=== PATIENT | male | born 1940 | race Caucasian/White ===

== ENCOUNTER 2018-10-12 06:49 | Day surgery (SDC) | payer MEDICARE ==
[~2018-10-12] VITALS: Ht 170.2 cm; Wt 74.8 kg
[2018-10-12 07:21] VITALS: BP 153/84
[2018-10-12] MEDS ORDERED: LISI1TAB5 PO (07:31)
[2018-10-12] MEDS ORDERED: PHEN100C PO (07:31)
[2018-10-12] MEDS ORDERED: NAPR-850 PO (07:31)
[2018-10-12] MEDS ORDERED: METF500T17 PO (07:31)
[2018-10-12] MEDS ORDERED: GLIM4TAB2 PO (07:31)
[2018-10-12 07:33] LABS: BASOPHILS # (AUTO) 0.05 x10^3/uL (0-0.1); BASOPHILS % (AUTO) 1 % (0-1); EOSINOPHILS # (AUTO) 0.23 x10^3/uL (0-0.4); EOSINOPHILS % (AUTO) 3 % (1-7); LYMPHOCYTES # (AUTO) 2.35 x10^3/uL (1-3.4); LYMPHOCYTES % (AUTO) 29 % (22-44); MD NO; MEAN CORPUSCULAR HEMOGLOBIN 32.3 pg (27.5-34.5); MEAN CORPUSCULAR HGB CONC 33.7 g/dL (33.2-36.2); MEAN CORPUSCULAR VOLUME 95.8 fL (81-97); MEAN PLATELET VOLUME 7.9 fL (7.4-10.4); MONOCYTES # (AUTO) 0.48 x10^3/uL (0.2-0.8); MONOCYTES % (AUTO) 6 % (2-9); NEUTROPHILS # (AUTO) 4.95 x10^3/uL (1.8-6.8); NEUTROPHILS % (AUTO) 62 % (42-75); PLATELET COUNT 311 x10^3/uL (130-400); RED BLOOD COUNT 4.82 x10^6/uL (4.38-5.82); RED CELL DISTRIBUTION WIDTH 13.6 % (9.4-14.8)
[2018-10-12 07:44] LABS: ANION GAP 6 mmol/L (5-15); CALCIUM 9.8 mg/dL (8.5-10.1); CHLORIDE 107 mmol/L (98-107); CREATININE 1.33 mg/dL (0.7-1.3)
[2018-10-12] MEDS ORDERED: PROTAMINE SULFATE 10 MG/ML, 25ML ONE (07:49)
[2018-10-12] MEDS ORDERED: NALOXONE 1 MG/ML, 2ML ONE (07:49)
[2018-10-12] MEDS ORDERED: HEPARIN 1,000 UNITS/ML, 10ML ONE (07:49)
[2018-10-12] MEDS ORDERED: FLUMAZENIL 0.1 MG/1 ML, 5ML ONE (07:49)
[2018-10-12] MEDS ORDERED: NITROGLYCERIN 5 MG/ML, 10ML ONE (07:49)
[2018-10-12] MEDS ORDERED: FENTANYL PF 100 MCG/2ML ONE (07:49)
[2018-10-12] MEDS ORDERED: MIDAZOLAM 1 MG/ML, 5ML ONE ×2 (07:49)
[2018-10-12] MEDS ORDERED: OMNIPAQUE 350 MG/ML, 150 ML BOTTLE ONE (10:10)
== END 2018-10-12 10:38 | disposition home or self-care (01) ==
LOC: OUT 06:49
PROVIDERS: ATTEND Surgery Vascular Surgery
DX: I73.9 Peripheral vascular disease, unspecified (principal); Z53.9 Procedure and treatment not carried out, unspecified reason; E78.00 Pure hypercholesterolemia, unspecified; I10 Essential (primary) hypertension
CPT/HCPCS: 36140; 36415; 75630; 75635; 80048; 85025; J1644; J2250; J2310; J2720; J3010; Q9967

== ENCOUNTER 2018-12-09 11:12 | Outpatient (CLI) | payer MEDICARE ==
[~2018-12-09 11:12] MED LIST: GLIM4TAB2 PO; LISI1TAB5 PO; METF500T17 PO; NAPR-850 PO; PHEN100C PO
[2018-12-09 12:22] LABS: BASOPHILS # (AUTO) 0.04 x10^3/uL (0-0.1); BASOPHILS % (AUTO) 1 % (0-1); EOSINOPHILS # (AUTO) 0.25 x10^3/uL (0-0.4); EOSINOPHILS % (AUTO) 3 % (1-7); LYMPHOCYTES % (AUTO) 27 % (22-44); MD NO; MEAN CORPUSCULAR HEMOGLOBIN 32.6 pg (27.5-34.5); MEAN CORPUSCULAR HGB CONC 34.2 g/dL (33.2-36.2); MEAN CORPUSCULAR VOLUME 95.3 fL (81-97); MEAN PLATELET VOLUME 7.8 fL (7.4-10.4); MONOCYTES # (AUTO) 0.51 x10^3/uL (0.2-0.8); MONOCYTES % (AUTO) 7 % (2-9); NEUTROPHILS # (AUTO) 4.81 x10^3/uL (1.8-6.8); NEUTROPHILS % (AUTO) 62 % (42-75); PLATELET COUNT 329 x10^3/uL (130-400); RED BLOOD COUNT 4.75 x10^6/uL (4.38-5.82); RED CELL DISTRIBUTION WIDTH 13.4 % (9.4-14.8)
[2018-12-09 12:33] LABS: ALANINE AMINOTRANSFERASE 49 U/L (12-78); ALBUMIN 3.9 g/dL (3.4-5.0); ANION GAP 6 mmol/L (5-15); CALCIUM 9.6 mg/dL (8.5-10.1); CHLORIDE 107 mmol/L (98-107)
[2018-12-09 12:35] LABS: ALKALINE PHOSPHATASE 165 U/L (45-117); BILIRUBIN,TOTAL 0.4 mg/dL (0.2-1.0); TOTAL PROTEIN 8.9 g/dL (6.4-8.2)
[2018-12-09] MEDS ORDERED: VITA200C33 PO (15:39)
[2018-12-09] MEDS ORDERED: CHOL100012 PO (15:39)
[2018-12-09] MEDS ORDERED: FISH1CAP PO (15:39)
[2018-12-22] MEDS ORDERED: LISI5TAB7 PO (10:57)
[2018-12-22] MEDS ORDERED: ASPI-650 PO (10:57)
[2018-12-22] MEDS ORDERED: METO25TA35 PO (10:57)
[2018-12-22] MEDS ORDERED: ATOR-2 PO (10:57)
[2018-12-22] MEDS ORDERED: CLOP75TA PO (10:57)
[2018-12-22] MEDS ORDERED: NITR0.4T SL (10:57)
== END 2018-12-09 23:59 | disposition home or self-care (01) ==
LOC: STAR 11:12
PROVIDERS: ATTEND Surgery Vascular Surgery
DX: Z01.818 Encounter for other preprocedural examination (principal)
CPT/HCPCS: 36415; 80053; 85025; 93005

== ENCOUNTER 2018-12-13 06:15 | Inpatient (IN) | payer MEDICARE ==
[~2018-12-13] VITALS: Ht 170.2 cm; Wt 82.6 kg
[~2018-12-13 06:15] MED LIST changes: +CHOL100012 PO; +FISH1CAP PO; +VITA200C33 PO
[2018-12-13] MEDS ORDERED: PROTAMINE SULFATE 10 MG/ML, 5ML ONE (06:39)
[2018-12-13] MEDS ORDERED: HEPARIN 5,000 UNITS/ML, 1ML ONE ×2 (06:39→08:25)
[2018-12-13] MEDS ORDERED: BACITRACIN 50,000 UNIT ONE (06:40)
[2018-12-13] MEDS ORDERED: THROMBIN 20,000 UNIT VIAL TP ONE ×2 (06:40→10:21)
[2018-12-13] MEDS ORDERED: PAPAVERINE 30 MG/ML, 2ML ONE (07:04)
[2018-12-13] MEDS ORDERED: MIDAZOLAM 1 MG/ML, 2ML ONE (07:14)
[2018-12-13] MEDS ORDERED: FENTANYL PF 250 MCG/5ML ONE (07:15)
[2018-12-13] MEDS ORDERED: LACTATED RINGERS 1,000 ML IV SCH (07:16)
[2018-12-13] MEDS ORDERED: HYDROmorphone 2 MG/ML, 1ML IVPush PRN (07:30)
[2018-12-13] MEDS ORDERED: FENTANYL PF 100 MCG/2ML IV PRN (07:30)
[2018-12-13] MEDS ORDERED: LIDOCAINE-MPF 1%, 2ML INFIL ONE (07:30)
[2018-12-13] MEDS ORDERED: LABETALOL 5MG/ML, 20ML IV PRN (07:30)
[2018-12-13] MEDS ORDERED: EPHEDRINE 50 MG/ML, 1ML IVPush PRN (07:30)
[2018-12-13] MEDS ORDERED: LORazepam 2 MG/ML, 1ML IVPush PRN (07:30)
[2018-12-13] MEDS ORDERED: ACETAMINOPHEN 325 MG TABLET PO PRN (07:30)
[2018-12-13] MEDS ORDERED: OXYcodone 5 MG/5 ML ORAL.SOL UDC PO PRN ×2 (07:30→14:00)
[2018-12-13] MEDS ORDERED: METOCLOPRAMIDE 5 MG/ML, 2ML IV PRN (07:30)
[2018-12-13] MEDS ORDERED: hydrALAzine 20 MG/ML, 1ML IV PRN (07:30)
[2018-12-13] MEDS ORDERED: METOPROLOL 1 MG/ML, 5ML IV PRN (07:30)
[2018-12-13] MEDS ORDERED: ALBUTEROL SULFATE 2.5 MG/3 ML NPPB PRN (07:30)
[2018-12-13] MEDS ORDERED: HEPARIN 1,000 UNITS/ML, 30ML ONE (08:25)
[2018-12-13] MEDS ORDERED: VISIPAQUE 320MG/ML, 50ML BOTTLE IV ONE (08:55)
[2018-12-13] MEDS ORDERED: FENTANYL PF 100 MCG/2ML ONE (10:40)
[2018-12-13] MEDS ORDERED: LORazepam 2 MG/ML, 1ML ONE (10:40)
[2018-12-13] MEDS ORDERED: OPIUM/BELLADONNA SUPP.RECT 16.2-60 MG ONE (10:45)
[2018-12-13] MEDS ORDERED: OPIUM/BELLADONNA SUPP.RECT 16.2-60 MG PR PRN (12:00)
[2018-12-13] MEDS ORDERED: VISIPAQUE 320MG/ML, 50ML BOTTLE ONE (12:18)
[2018-12-13] MEDS ORDERED: OXYcodone 5 MG/5 ML ORAL.SOL UDC ONE (13:07)
[2018-12-13] MEDS ORDERED: SODIUM CHLORIDE 0.9% 1,000 ML IV SCH (13:30)
[2018-12-13] MEDS ORDERED: ONDANSETRON 2MG/ML, 2ML IV PRN (13:30)
[2018-12-13 14:10] VITALS: BP 108/62
[2018-12-13] MEDS: CEFAZOLIN PMX 1GM/50ML 50 ML IVPB SCH (15:55)
[2018-12-13] MEDS: SODIUM CHLORIDE 0.9% 1,000 ML IV SCH (15:55)
[2018-12-13] MEDS: INSULIN REGULAR, HUMAN 100 UNIT/ML 3ML VIAL LOW DOSE SS SQ-INSULIN SCH ×2 (15:59→20:59)
[2018-12-13 20:22] VITALS: BP 141/83
[2018-12-13] MEDS: PHENYTOIN 100 MG CAPSULE PO SCH (20:59)
[2018-12-13] MEDS: LISINOPRIL 20 MG TABLET PO SCH (20:59)
[2018-12-13] MEDS: NAPROXEN 500 MG TABLET PO SCH (20:59)
[2018-12-13] MEDS: HYDROCHLOROTHIAZIDE 12.5 MG CAPSULE PO SCH (20:59)
[2018-12-14 00:09] VITALS: BP 92/56
[2018-12-14] MEDS: CEFAZOLIN PMX 1GM/50ML 50 ML IVPB SCH (00:13)
[2018-12-14 04:01] VITALS: BP 121/92
[2018-12-14 05:14] LABS: BASOPHILS # (AUTO) 0.03 x10^3/uL (0-0.1); BASOPHILS % (AUTO) 0 % (0-1); EOSINOPHILS # (AUTO) 0.21 x10^3/uL (0-0.4); EOSINOPHILS % (AUTO) 2 % (1-7); LYMPHOCYTES # (AUTO) 2.12 x10^3/uL (1-3.4); LYMPHOCYTES % (AUTO) 23 % (22-44); MD NO; MEAN CORPUSCULAR HGB CONC 34.5 g/dL (33.2-36.2); MEAN CORPUSCULAR VOLUME 95.6 fL (81-97); MONOCYTES # (AUTO) 1.02 x10^3/uL (0.2-0.8); MONOCYTES % (AUTO) 11 % (2-9); NEUTROPHILS # (AUTO) 6.04 x10^3/uL (1.8-6.8); NEUTROPHILS % (AUTO) 64 % (42-75); PLATELET COUNT 213 x10^3/uL (130-400); RED BLOOD COUNT 3.28 x10^6/uL (4.38-5.82); RED CELL DISTRIBUTION WIDTH 12.9 % (9.4-14.8)
[2018-12-14] MEDS: SODIUM CHLORIDE 0.9% 1,000 ML IV SCH (05:16)
[2018-12-14 05:27] LABS: ALBUMIN 2.7 g/dL (3.4-5.0); ANION GAP 4 mmol/L (5-15); CHLORIDE 110 mmol/L (98-107)
[2018-12-14 05:28] LABS: CREATININE 1.35 mg/dL (0.7-1.3)
[2018-12-14 06:49] VITALS: BP 121/92
[2018-12-14] MEDS: INSULIN REGULAR, HUMAN 100 UNIT/ML 3ML VIAL LOW DOSE SS SQ-INSULIN SCH ×4 (07:22→21:00)
[2018-12-14] MEDS ORDERED: PROTAMINE SULFATE 10 MG/ML, 5ML ONE (08:20)
[2018-12-14] MEDS ORDERED: HEPARIN 1,000 UNITS/ML, 10ML ONE (08:20)
[2018-12-14] MEDS ORDERED: THROMBIN 20,000 UNIT VIAL TP ONE (08:21)
[2018-12-14] MEDS ORDERED: FENTANYL PF 250 MCG/5ML ONE (08:29)
[2018-12-14] MEDS ORDERED: BACITRACIN 50,000 UNIT ONE (08:38)
[2018-12-14] MEDS ORDERED: PHENYLEPHRINE 10 MG/ML ONE (08:52)
[2018-12-14] MEDS ORDERED: OXYcodone 5 MG/5 ML ORAL.SOL UDC PO PRN (10:00)
[2018-12-14] MEDS ORDERED: ACETAMINOPHEN 325 MG TABLET PO PRN (10:00)
[2018-12-14] MEDS ORDERED: hydrALAzine 20 MG/ML, 1ML IV PRN (10:00)
[2018-12-14] MEDS ORDERED: MIDAZOLAM 1 MG/ML, 2ML IV PRN (10:00)
[2018-12-14] MEDS ORDERED: ONDANSETRON 2MG/ML, 2ML IV PRN (10:00)
[2018-12-14] MEDS ORDERED: HEPARIN 5,000 UNITS/ML, 1ML IV ONE (10:00)
[2018-12-14] MEDS ORDERED: FENTANYL PF 100 MCG/2ML IV PRN (10:00)
[2018-12-14] MEDS ORDERED: ALBUTEROL/IPRATROPIUM 2.5MG/0.5MG, 3 ML NPPB PRN (10:00)
[2018-12-14] MEDS ORDERED: MEPERIDINE/PF 25MG/0.5ML IVPush PRN (10:00)
[2018-12-14] MEDS ORDERED: METOPROLOL 1 MG/ML, 5ML IV PRN (10:00)
[2018-12-14] MEDS ORDERED: HYDROmorphone 2 MG/ML, 1ML IVPush PRN (10:00)
[2018-12-14] MEDS ORDERED: VISIPAQUE 320MG/ML, 50ML BOTTLE ONE (10:26)
[2018-12-14] MEDS ORDERED: ROCURONIUM 10MG/ML,5ML ONE (10:27)
[2018-12-14] MEDS ORDERED: ONDANSETRON 2MG/ML, 2ML ONE (10:27)
[2018-12-14] MEDS ORDERED: CEFAZOLIN 1,000 MG ONE (10:27)
[2018-12-14] MEDS ORDERED: DEXAMETHASONE 4 MG/ML, 1ML ONE (10:27)
[2018-12-14] MEDS ORDERED: GLYCOPYRROLATE 0.2MG/1ML, 5ML ONE (10:27)
[2018-12-14] MEDS ORDERED: LIDOCAINE-MPF 2% ,5ML ONE (10:27)
[2018-12-14] MEDS ORDERED: NEOSTIGMINE 1 MG/ML, 10ML ONE (10:27)
[2018-12-14] MEDS ORDERED: PROPOFOL 10 MG/ML, 20ML ONE (10:27)
[2018-12-14] MEDS: OMEGA-3/FISH OIL CAPSULE PO SCH (10:42)
[2018-12-14] MEDS: PHENYTOIN 100 MG CAPSULE PO SCH ×2 (10:42→21:42)
[2018-12-14] MEDS: HYDROCHLOROTHIAZIDE 12.5 MG CAPSULE PO SCH ×2 (10:42→21:00)
[2018-12-14] MEDS: LISINOPRIL 20 MG TABLET PO SCH ×2 (10:43→21:00)
[2018-12-14] MEDS: CHOLECALCIFEROL 1,000 UNIT TABLET PO SCH (10:43)
[2018-12-14] MEDS: NAPROXEN 500 MG TABLET PO SCH ×2 (10:43→21:42)
[2018-12-14] MEDS: VITAMIN E 400 UNITS CAPSULE PO SCH (10:43)
[2018-12-14] MEDS ORDERED: MIDAZOLAM 1 MG/ML, 2ML ONE (10:47)
[2018-12-14] MEDS ORDERED: ALBUTEROL/IPRATROPIUM 2.5MG/0.5MG, 3 ML ONE (11:27)
[2018-12-14] MEDS ORDERED: FENTANYL PF 100 MCG/2ML ONE (12:02)
[2018-12-14] MEDS: HEPARIN 25,000 UNITS/500ML PMX 500 ML IV PRN (12:30)
[2018-12-14 15:36] VITALS: BP 118/61
[2018-12-14] MEDS ORDERED: SODIUM CHLORIDE 0.9%, 500ML IVBOLUS ONE (18:30)
[2018-12-14] MEDS: HEPARIN 5,000 UNITS/ML, 1ML IV PRN (19:07)
[2018-12-14 20:15] VITALS: BP 93/50
[2018-12-14 21:11] LABS: BASOPHILS # (AUTO) 0.03 x10^3/uL (0-0.1); BASOPHILS % (AUTO) 0 % (0-1); EOSINOPHILS # (AUTO) 0.03 x10^3/uL (0-0.4); EOSINOPHILS % (AUTO) 0 % (1-7); LYMPHOCYTES % (AUTO) 17 % (22-44); MD NO; MEAN CORPUSCULAR HEMOGLOBIN 32.5 pg (27.5-34.5); MEAN CORPUSCULAR HGB CONC 33.7 g/dL (33.2-36.2); MEAN CORPUSCULAR VOLUME 96.4 fL (81-97); MEAN PLATELET VOLUME 8.4 fL (7.4-10.4); MONOCYTES # (AUTO) 0.92 x10^3/uL (0.2-0.8); MONOCYTES % (AUTO) 10 % (2-9); NEUTROPHILS # (AUTO) 6.59 x10^3/uL (1.8-6.8); NEUTROPHILS % (AUTO) 73 % (42-75); PLATELET COUNT 204 x10^3/uL (130-400); RED BLOOD COUNT 2.88 x10^6/uL (4.38-5.82); RED CELL DISTRIBUTION WIDTH 12.7 % (9.4-14.8)
[2018-12-14 21:13] LABS: ANION GAP 6 mmol/L (5-15); CALCIUM 7.7 mg/dL (8.5-10.1); CHLORIDE 108 mmol/L (98-107); CREATININE 1.27 mg/dL (0.7-1.3)
[2018-12-14] MEDS: HYDROcodone/APAP 5/325 TABLET PO PRN (22:48)
[2018-12-15] VITALS (7 sets, daily range): BP systolic 84–118; BP diastolic 44–77
[2018-12-15] MEDS ORDERED: SODIUM CHLORIDE 0.9%, 250ML IVBOLUS ONE
[2018-12-15] MEDS: SODIUM CHLORIDE 0.9% 1,000 ML IV SCH (01:06)
[2018-12-15] MEDS ORDERED: SODIUM CHLORIDE 0.9% 500 ML IVBOLUS ONE (02:00)
[2018-12-15] MEDS: HEPARIN 5,000 UNITS/ML, 1ML IV PRN ×3 (02:40→18:34)
[2018-12-15] MEDS ORDERED: FUROSEMIDE 20 MG/2 ML IV ONE (05:30)
[2018-12-15] MEDS: ASPIRIN 325 MG TABLET EC PO SCH (05:51)
[2018-12-15] MEDS: INSULIN REGULAR, HUMAN 100 UNIT/ML 3ML VIAL LOW DOSE SS SQ-INSULIN SCH ×4 (07:00→20:15)
[2018-12-15] MEDS: CHOLECALCIFEROL 1,000 UNIT TABLET PO SCH (08:04)
[2018-12-15] MEDS: PHENYTOIN 100 MG CAPSULE PO SCH ×2 (08:04→20:10)
[2018-12-15] MEDS: OMEGA-3/FISH OIL CAPSULE PO SCH (08:04)
[2018-12-15] MEDS: VITAMIN E 400 UNITS CAPSULE PO SCH (08:04)
[2018-12-15 09:48] LABS: BASOPHILS # (AUTO) 0.03 x10^3/uL (0-0.1); BASOPHILS % (AUTO) 0 % (0-1); EOSINOPHILS # (AUTO) 0.14 x10^3/uL (0-0.4); EOSINOPHILS % (AUTO) 2 % (1-7); LYMPHOCYTES # (AUTO) 1.35 x10^3/uL (1-3.4); LYMPHOCYTES % (AUTO) 14 % (22-44); MD NO; MEAN CORPUSCULAR HEMOGLOBIN 32.9 pg (27.5-34.5); MEAN CORPUSCULAR HGB CONC 34.3 g/dL (33.2-36.2); MEAN CORPUSCULAR VOLUME 95.7 fL (81-97); MEAN PLATELET VOLUME 8.3 fL (7.4-10.4); MONOCYTES # (AUTO) 0.75 x10^3/uL (0.2-0.8); MONOCYTES % (AUTO) 8 % (2-9); NEUTROPHILS # (AUTO) 7.27 x10^3/uL (1.8-6.8); NEUTROPHILS % (AUTO) 76 % (42-75); PLATELET COUNT 180 x10^3/uL (130-400); RED BLOOD COUNT 2.74 x10^6/uL (4.38-5.82); RED CELL DISTRIBUTION WIDTH 12.7 % (9.4-14.8)
[2018-12-15 10:04] LABS: ANION GAP 6 mmol/L (5-15); CALCIUM 7.1 mg/dL (8.5-10.1); CHLORIDE 109 mmol/L (98-107)
[2018-12-15] MEDS ORDERED: SODIUM CHLORIDE 0.9% 1,000 ML IV SCH (14:38)
[2018-12-15] MEDS ORDERED: DIPHENHYDRAMINE 50 MG/ML, 1ML IVPush ONE (15:00)
[2018-12-15] MEDS: morphine SULFATE 10 MG/ML, 1ML IV PRN (15:35)
[2018-12-15] MEDS: HEPARIN 25,000 UNITS/500ML PMX 500 ML IV PRN (16:21)
[2018-12-16] MEDS: HEPARIN 5,000 UNITS/ML, 1ML IV PRN ×3 (01:26→19:45)
[2018-12-16 02:42] VITALS: BP 106/65
[2018-12-16] MEDS: SODIUM CHLORIDE 0.9% 1,000 ML IV SCH ×2 (05:38→16:48)
[2018-12-16] MEDS: ASPIRIN 325 MG TABLET EC PO SCH (05:42)
[2018-12-16] MEDS ORDERED: SODIUM CHLORIDE 0.9% 1,000 ML IV SCH (06:00)
[2018-12-16] MEDS: INSULIN REGULAR, HUMAN 100 UNIT/ML 3ML VIAL LOW DOSE SS SQ-INSULIN SCH ×4 (07:00→20:39)
[2018-12-16 08:51] VITALS: BP 113/68
[2018-12-16] MEDS: VITAMIN E 400 UNITS CAPSULE PO SCH (09:00)
[2018-12-16] MEDS: PHENYTOIN 100 MG CAPSULE PO SCH ×2 (09:06→20:31)
[2018-12-16 10:27] LABS: BASOPHILS # (AUTO) 0.03 x10^3/uL (0-0.1); BASOPHILS % (AUTO) 0 % (0-1); EOSINOPHILS # (AUTO) 0.07 x10^3/uL (0-0.4); EOSINOPHILS % (AUTO) 1 % (1-7); LYMPHOCYTES # (AUTO) 1.36 x10^3/uL (1-3.4); LYMPHOCYTES % (AUTO) 18 % (22-44); MD NO; MEAN CORPUSCULAR HGB CONC 34.9 g/dL (33.2-36.2); MEAN CORPUSCULAR VOLUME 94.8 fL (81-97); MONOCYTES # (AUTO) 0.53 x10^3/uL (0.2-0.8); MONOCYTES % (AUTO) 7 % (2-9); NEUTROPHILS % (AUTO) 74 % (42-75); PLATELET COUNT 199 x10^3/uL (130-400); RED BLOOD COUNT 2.47 x10^6/uL (4.38-5.82); RED CELL DISTRIBUTION WIDTH 12.8 % (9.4-14.8)
[2018-12-16 10:29] LABS: ANION GAP 6 mmol/L (5-15); CALCIUM 7.8 mg/dL (8.5-10.1); CHLORIDE 110 mmol/L (98-107); CREATININE 0.95 mg/dL (0.7-1.3)
[2018-12-16 10:52] LABS: HEMOGLOBIN A1C 7.4 % (4.2-6.3)
[2018-12-16] MEDS: OMEGA-3/FISH OIL CAPSULE PO SCH (12:00)
[2018-12-16] MEDS: CHOLECALCIFEROL 1,000 UNIT TABLET PO SCH (12:00)
[2018-12-16 12:51] VITALS: BP 111/59
[2018-12-16] MEDS: HYDROcodone/APAP 5/325 TABLET PO PRN ×2 (14:20→20:31)
[2018-12-16] MEDS: HEPARIN 25,000 UNITS/500ML PMX 500 ML IV PRN (19:03)
[2018-12-16 19:42] VITALS: BP 96/61
[2018-12-17 00:11] VITALS: BP 123/69
[2018-12-17] MEDS: HEPARIN 5,000 UNITS/ML, 1ML IV PRN (03:00)
[2018-12-17] MEDS: SODIUM CHLORIDE 0.9% 1,000 ML IV SCH ×3 (03:36→21:35)
[2018-12-17] MEDS: ASPIRIN 325 MG TABLET EC PO SCH (05:09)
[2018-12-17] MEDS: INSULIN REGULAR, HUMAN 100 UNIT/ML 3ML VIAL LOW DOSE SS SQ-INSULIN SCH ×4 (08:17→23:02)
[2018-12-17] MEDS: PHENYTOIN 100 MG CAPSULE PO SCH ×2 (08:17→22:56)
[2018-12-17] MEDS: OMEGA-3/FISH OIL CAPSULE PO SCH (08:18)
[2018-12-17] MEDS: CHOLECALCIFEROL 1,000 UNIT TABLET PO SCH (08:18)
[2018-12-17] MEDS: VITAMIN E 400 UNITS CAPSULE PO SCH (08:18)
[2018-12-17 09:21] VITALS: BP 129/64
[2018-12-17] MEDS ORDERED: NITROGLYCERIN 0.4 MG BOTTLE (25 TABS) SL ONE (09:27)
[2018-12-17] MEDS ORDERED: SENNA/DOCUSATE TABLET ONE (09:27)
[2018-12-17] MEDS ORDERED: BISACODYL 10 MG SUPP PR PRN (09:30)
[2018-12-17] MEDS ORDERED: POLYETHYLENE GLYCOL 17 GM PACKET PO PRN (09:30)
[2018-12-17] MEDS ORDERED: NITROGLYCERIN 0.4 MG/SPRAY SL PRN (09:30)
[2018-12-17] MEDS ORDERED: LACTULOSE 20 GM/30 ML UDC PO PRN (09:30)
[2018-12-17] MEDS: NITROGLYCERIN 0.4 MG BOTTLE (25 TABS) SL PRN (09:34)
[2018-12-17] MEDS: SENNA/DOCUSATE TABLET PO SCH (09:35)
[2018-12-17 09:40] VITALS: BP 92/48
[2018-12-17 13:10] VITALS: BP 115/59
[2018-12-17] MEDS: APIXABAN 5 MG TABLET PO SCH ×2 (13:35→22:56)
[2018-12-17 19:00] VITALS: BP 101/61
[2018-12-18] VITALS (7 sets, daily range): BP systolic 105–138; BP diastolic 57–74
[2018-12-18] MEDS: NITROGLYCERIN 0.4 MG BOTTLE (25 TABS) SL PRN (04:12)
[2018-12-18] MEDS: ASPIRIN 325 MG TABLET EC PO SCH (04:17)
[2018-12-18] MEDS ORDERED: HEPARIN 5,000 UNITS/ML, 1ML IV ONE (07:30)
[2018-12-18 07:44] LABS: CHOL/HDL RATIO 3.5
[2018-12-18 08:09] LABS: CREATINE KINASE, TOTAL 281 U/L (39-308)
[2018-12-18] MEDS: HEPARIN 25,000 UNITS/500ML PMX 500 ML IV PRN (08:12)
[2018-12-18] MEDS: OMEGA-3/FISH OIL CAPSULE PO SCH (08:19)
[2018-12-18] MEDS: INSULIN REGULAR, HUMAN 100 UNIT/ML 3ML VIAL LOW DOSE SS SQ-INSULIN SCH ×4 (08:19→22:28)
[2018-12-18] MEDS: SENNA/DOCUSATE TABLET PO SCH (08:19)
[2018-12-18] MEDS: CHOLECALCIFEROL 1,000 UNIT TABLET PO SCH (08:19)
[2018-12-18] MEDS: VITAMIN E 400 UNITS CAPSULE PO SCH (08:22)
[2018-12-18] MEDS: PHENYTOIN 100 MG CAPSULE PO SCH ×2 (08:22→22:33)
[2018-12-18] MEDS: METOPROLOL TARTRATE 25 MG TABLET PO SCH ×2 (13:54→22:33)
[2018-12-18] MEDS: HYDROcodone/APAP 5/325 TABLET PO PRN (13:54)
[2018-12-18] MEDS: HEPARIN 5,000 UNITS/ML, 1ML IV PRN ×2 (15:02→22:28)
[2018-12-18] MEDS ORDERED: METOPROLOL TARTRATE 25 MG TABLET PO SCH (18:00)
[2018-12-18] MEDS: ATORVASTATIN 80 MG TABLET PO SCH (22:28)
[2018-12-19] VITALS: BP 101/64
[2018-12-19] MEDS: METOPROLOL TARTRATE 25 MG TABLET PO SCH ×4 (03:38→21:26)
[2018-12-19 03:42] VITALS: BP 116/71
[2018-12-19 04:30] LABS: BASOPHILS # (AUTO) 0.04 x10^3/uL (0-0.1); BASOPHILS % (AUTO) 1 % (0-1); EOSINOPHILS # (AUTO) 0.23 x10^3/uL (0-0.4); EOSINOPHILS % (AUTO) 4 % (1-7); LYMPHOCYTES # (AUTO) 1.39 x10^3/uL (1-3.4); LYMPHOCYTES % (AUTO) 22 % (22-44); MD NO; MEAN CORPUSCULAR HEMOGLOBIN 32.2 pg (27.5-34.5); MEAN CORPUSCULAR HGB CONC 33.7 g/dL (33.2-36.2); MEAN CORPUSCULAR VOLUME 95.5 fL (81-97); MEAN PLATELET VOLUME 9.1 fL (7.4-10.4); MONOCYTES # (AUTO) 0.47 x10^3/uL (0.2-0.8); MONOCYTES % (AUTO) 7 % (2-9); NEUTROPHILS % (AUTO) 67 % (42-75); PLATELET COUNT 308 x10^3/uL (130-400); RED CELL DISTRIBUTION WIDTH 13.3 % (9.4-14.8)
[2018-12-19] MEDS: HEPARIN 25,000 UNITS/500ML PMX 500 ML IV PRN (04:50)
[2018-12-19] MEDS: HEPARIN 5,000 UNITS/ML, 1ML IV PRN (04:51)
[2018-12-19 04:52] LABS: CHLORIDE 108 mmol/L (98-107)
[2018-12-19] MEDS: ASPIRIN 325 MG TABLET EC PO SCH (04:53)
[2018-12-19 04:58] LABS: ANION GAP 5 mmol/L (5-15); CALCIUM 8.5 mg/dL (8.5-10.1); CREATININE 0.94 mg/dL (0.7-1.3)
[2018-12-19] MEDS ORDERED: SODIUM CHLORIDE 0.9% 1,000 ML IV SCH (06:00)
[2018-12-19 07:52] VITALS: BP 120/68
[2018-12-19] MEDS: SENNA/DOCUSATE TABLET PO SCH (08:36)
[2018-12-19] MEDS: CHOLECALCIFEROL 1,000 UNIT TABLET PO SCH (08:56)
[2018-12-19] MEDS: OMEGA-3/FISH OIL CAPSULE PO SCH (08:57)
[2018-12-19] MEDS: PHENYTOIN 100 MG CAPSULE PO SCH ×2 (08:57→21:25)
[2018-12-19] MEDS: INSULIN REGULAR, HUMAN 100 UNIT/ML 3ML VIAL LOW DOSE SS SQ-INSULIN SCH ×4 (10:14→21:24)
[2018-12-19 12:11] VITALS: BP 110/67
[2018-12-19 20:15] VITALS: BP 110/62
[2018-12-19] MEDS: ATORVASTATIN 80 MG TABLET PO SCH (21:27)
[2018-12-20] MEDS: HEPARIN 25,000 UNITS/500ML PMX 500 ML IV PRN ×2 (00:18→18:13)
[2018-12-20 01:46] VITALS: BP 101/56
[2018-12-20] MEDS: METOPROLOL TARTRATE 25 MG TABLET PO SCH ×4 (03:37→21:36)
[2018-12-20 05:24] LABS: MEAN CORPUSCULAR HEMOGLOBIN 32.9 pg (27.5-34.5); MEAN CORPUSCULAR HGB CONC 33.9 g/dL (33.2-36.2); RED BLOOD COUNT 2.48 x10^6/uL (4.38-5.82); RED CELL DISTRIBUTION WIDTH 13.4 % (9.4-14.8)
[2018-12-20 05:34] LABS: CHLORIDE 107 mmol/L (98-107)
[2018-12-20 05:39] LABS: ANION GAP 6 mmol/L (5-15); CALCIUM 8.5 mg/dL (8.5-10.1); CREATININE 1.03 mg/dL (0.7-1.3)
[2018-12-20] MEDS: ASPIRIN 325 MG TABLET EC PO SCH (05:56)
[2018-12-20 06:23] LABS: BASOPHILS # (AUTO) 0.06 x10^3/uL (0-0.1); BASOPHILS % (AUTO) 1 % (0-1); EOSINOPHILS # (AUTO) 0.28 x10^3/uL (0-0.4); EOSINOPHILS % (AUTO) 4 % (1-7); LYMPHOCYTES # (AUTO) 1.79 x10^3/uL (1-3.4); LYMPHOCYTES % (AUTO) 22 % (22-44); MD SCAN; MEAN PLATELET VOLUME 9.7 fL (7.4-10.4); MONOCYTES # (AUTO) 0.71 x10^3/uL (0.2-0.8); MONOCYTES % (AUTO) 9 % (2-9); NEUTROPHILS # (AUTO) 5.24 x10^3/uL (1.8-6.8); NEUTROPHILS % (AUTO) 65 % (42-75); PLATELET COUNT 344 x10^3/uL (130-400)
[2018-12-20] MEDS: SENNA/DOCUSATE TABLET PO SCH (07:08)
[2018-12-20 07:20] VITALS: BP 102/58
[2018-12-20] MEDS: OMEGA-3/FISH OIL CAPSULE PO SCH (08:05)
[2018-12-20] MEDS: PHENYTOIN 100 MG CAPSULE PO SCH ×2 (08:05→21:36)
[2018-12-20] MEDS: CHOLECALCIFEROL 1,000 UNIT TABLET PO SCH (08:05)
[2018-12-20] MEDS: INSULIN REGULAR, HUMAN 100 UNIT/ML 3ML VIAL LOW DOSE SS SQ-INSULIN SCH ×4 (08:06→21:35)
[2018-12-20 12:15] VITALS: BP 109/59
[2018-12-20] MEDS ORDERED: VERAPAMIL 2.5 MG/ML, 2ML ONE (12:24)
[2018-12-20] MEDS ORDERED: MIDAZOLAM 1 MG/ML, 5ML ONE (12:24)
[2018-12-20] MEDS ORDERED: TICAGRELOR 90 MG TABLET ONE (12:24)
[2018-12-20] MEDS ORDERED: FENTANYL PF 100 MCG/2ML ONE (12:24)
[2018-12-20] MEDS ORDERED: BIVALIRUDIN 250 MG ONE (12:25)
[2018-12-20] MEDS ORDERED: LIDOCAINE-MPF 1%, 5ML ONE (12:25)
[2018-12-20] MEDS: SODIUM CHLORIDE 0.9% 1,000 ML IV SCH ×2 (14:03→21:13)
[2018-12-20 19:33] VITALS: BP 106/54
[2018-12-20] MEDS: HEPARIN 5,000 UNITS/ML, 1ML IV PRN (21:35)
[2018-12-20] MEDS: ATORVASTATIN 80 MG TABLET PO SCH (21:36)
[2018-12-21 01:45] VITALS: BP 112/60
[2018-12-21] MEDS: METOPROLOL TARTRATE 25 MG TABLET PO SCH ×3 (03:00→21:19)
[2018-12-21 03:56] LABS: BASOPHILS # (AUTO) 0.06 x10^3/uL (0-0.1); BASOPHILS % (AUTO) 1 % (0-1); EOSINOPHILS # (AUTO) 0.31 x10^3/uL (0-0.4); EOSINOPHILS % (AUTO) 4 % (1-7); LYMPHOCYTES % (AUTO) 19 % (22-44); MD NO; MEAN CORPUSCULAR HGB CONC 34.3 g/dL (33.2-36.2); MEAN CORPUSCULAR VOLUME 96.3 fL (81-97); MEAN PLATELET VOLUME 9.1 fL (7.4-10.4); MONOCYTES # (AUTO) 0.53 x10^3/uL (0.2-0.8); MONOCYTES % (AUTO) 7 % (2-9); NEUTROPHILS # (AUTO) 5.26 x10^3/uL (1.8-6.8); NEUTROPHILS % (AUTO) 70 % (42-75); PLATELET COUNT 373 x10^3/uL (130-400); RED CELL DISTRIBUTION WIDTH 13.4 % (9.4-14.8)
[2018-12-21 04:05] LABS: ANION GAP 6 mmol/L (5-15); CALCIUM 8.4 mg/dL (8.5-10.1); CHLORIDE 108 mmol/L (98-107); CREATININE 0.99 mg/dL (0.7-1.3)
[2018-12-21] MEDS: ASPIRIN 325 MG TABLET EC PO SCH (07:28)
[2018-12-21 07:48] VITALS: BP 146/73
[2018-12-21] MEDS: SODIUM CHLORIDE 0.9% 1,000 ML IV SCH (07:48)
[2018-12-21] MEDS: CHOLECALCIFEROL 1,000 UNIT TABLET PO SCH (08:10)
[2018-12-21] MEDS: OMEGA-3/FISH OIL CAPSULE PO SCH (08:11)
[2018-12-21] MEDS: PHENYTOIN 100 MG CAPSULE PO SCH ×2 (08:11→21:20)
[2018-12-21] MEDS: SENNA/DOCUSATE TABLET PO SCH (08:11)
[2018-12-21] MEDS: INSULIN REGULAR, HUMAN 100 UNIT/ML 3ML VIAL LOW DOSE SS SQ-INSULIN SCH ×4 (08:12→21:00)
[2018-12-21] MEDS ORDERED: FUROSEMIDE 40 MG/4 ML IV ONE (11:00)
[2018-12-21] MEDS: CLOPIDOGREL 75 MG TABLET PO SCH (12:53)
[2018-12-21] MEDS: HEPARIN 25,000 UNITS/500ML PMX 500 ML IV PRN (13:04)
[2018-12-21 15:02] VITALS: BP 114/63
[2018-12-21 20:13] VITALS: BP 122/59
[2018-12-21] MEDS: ATORVASTATIN 80 MG TABLET PO SCH (21:20)
[2018-12-21] MEDS: HYDROcodone/APAP 5/325 TABLET PO PRN (21:33)
[2018-12-22] MEDS: HEPARIN 25,000 UNITS/500ML PMX 500 ML IV PRN (02:55)
[2018-12-22 02:58] VITALS: BP 109/56
[2018-12-22] MEDS: ASPIRIN 325 MG TABLET EC PO SCH (05:03)
[2018-12-22 06:36] LABS: BASOPHILS # (AUTO) 0.03 x10^3/uL (0-0.1); BASOPHILS % (AUTO) 0 % (0-1); EOSINOPHILS # (AUTO) 0.18 x10^3/uL (0-0.4); EOSINOPHILS % (AUTO) 2 % (1-7); LYMPHOCYTES # (AUTO) 1.34 x10^3/uL (1-3.4); LYMPHOCYTES % (AUTO) 17 % (22-44); MD NO; MEAN CORPUSCULAR HEMOGLOBIN 32.6 pg (27.5-34.5); MEAN CORPUSCULAR HGB CONC 33.6 g/dL (33.2-36.2); MEAN CORPUSCULAR VOLUME 97.3 fL (81-97); MEAN PLATELET VOLUME 9.1 fL (7.4-10.4); MONOCYTES # (AUTO) 0.51 x10^3/uL (0.2-0.8); MONOCYTES % (AUTO) 6 % (2-9); NEUTROPHILS # (AUTO) 6.06 x10^3/uL (1.8-6.8); NEUTROPHILS % (AUTO) 75 % (42-75); PLATELET COUNT 422 x10^3/uL (130-400); RED BLOOD COUNT 2.55 x10^6/uL (4.38-5.82); RED CELL DISTRIBUTION WIDTH 13.8 % (9.4-14.8)
[2018-12-22 06:58] VITALS: BP 111/54
[2018-12-22] MEDS: METOPROLOL TARTRATE 25 MG TABLET PO SCH ×2 (08:44→21:27)
[2018-12-22] MEDS: CHOLECALCIFEROL 1,000 UNIT TABLET PO SCH (08:44)
[2018-12-22] MEDS: CLOPIDOGREL 75 MG TABLET PO SCH (08:44)
[2018-12-22] MEDS: OMEGA-3/FISH OIL CAPSULE PO SCH (08:44)
[2018-12-22] MEDS: PHENYTOIN 100 MG CAPSULE PO SCH ×2 (08:44→21:28)
[2018-12-22] MEDS: INSULIN REGULAR, HUMAN 100 UNIT/ML 3ML VIAL LOW DOSE SS SQ-INSULIN SCH ×4 (08:45→21:00)
[2018-12-22] MEDS: SENNA/DOCUSATE TABLET PO SCH (08:45)
[2018-12-22] MEDS ORDERED: NITR0.4T41 SL ×2 (10:57)
[2018-12-22] MEDS ORDERED: ATOR-2 PO ×2 (10:57)
[2018-12-22] MEDS ORDERED: LISI5TAB7 PO ×2 (10:57)
[2018-12-22] MEDS ORDERED: METO25TA35 PO ×2 (10:57)
[2018-12-22] MEDS ORDERED: ASPI-650 PO ×2 (10:57)
[2018-12-22] MEDS ORDERED: CLOP75TA PO ×2 (10:57)
[2018-12-22] MEDS ORDERED: FUROSEMIDE 40 MG/4 ML IV ONE (12:00)
[2018-12-22] MEDS ORDERED: APIXABAN 5 MG TABLET ONE (12:05)
[2018-12-22] MEDS: LISINOPRIL 5 MG TABLET PO SCH (12:17)
[2018-12-22] MEDS: APIXABAN 5 MG TABLET PO SCH ×2 (12:18→21:28)
[2018-12-22 12:46] VITALS: BP 105/48
[2018-12-22 19:33] VITALS: BP 126/60
[2018-12-22] MEDS: ATORVASTATIN 80 MG TABLET PO SCH (21:28)
[2018-12-23 00:21] VITALS: BP 122/58
[2018-12-23] MEDS: ASPIRIN 325 MG TABLET EC PO SCH (05:27)
[2018-12-23 06:18] LABS: CHLORIDE 101 mmol/L (98-107)
[2018-12-23 06:21] LABS: ANION GAP 8 mmol/L (5-15); CALCIUM 8.5 mg/dL (8.5-10.1); CREATININE 1.07 mg/dL (0.7-1.3); MEAN CORPUSCULAR HEMOGLOBIN 32.3 pg (27.5-34.5); MEAN CORPUSCULAR HGB CONC 33.1 g/dL (33.2-36.2); MEAN CORPUSCULAR VOLUME 97.5 fL (81-97); MEAN PLATELET VOLUME 8.8 fL (7.4-10.4); PLATELET COUNT 499 x10^3/uL (130-400); RED BLOOD COUNT 2.76 x10^6/uL (4.38-5.82); RED CELL DISTRIBUTION WIDTH 14.1 % (9.4-14.8)
[2018-12-23 06:34] LABS: MD YES
[2018-12-23 06:36] LABS: BAND#(MANUAL) 0.88 x10^3/uL; BANDS%(MANUAL) 5 % (0-7); LYMPH#(MANUAL) 1.23 x10^3/uL (1-3.4); LYMPHS% (MANUAL) 7 % (22-44); MONOS#(MANUAL) 0.53 x10^3/uL (0.3-2.7); MONOS% (MANUAL) 3 % (2-9); SEG#(MANUAL) 14.96 x10^3/uL (1.8-6.8); SEGS% (MANUAL) 85 % (42-75)
[2018-12-23 06:37] LABS: <PLATELET ESTIMATE> INCREASED; <PLT MORPHOLOGY> NORMAL PLT MORPH; POLYCHROMASIA 1+
[2018-12-23] MEDS: INSULIN REGULAR, HUMAN 100 UNIT/ML 3ML VIAL LOW DOSE SS SQ-INSULIN SCH ×4 (07:00→20:32)
[2018-12-23 08:20] VITALS: BP 121/64
[2018-12-23] MEDS: SENNA/DOCUSATE TABLET PO SCH (09:00)
[2018-12-23] MEDS ORDERED: MAGNESIUM SULFATE PMX 2GM/50ML 50 ML IV ONE (10:00)
[2018-12-23 10:57] VITALS: BP 118/62
[2018-12-23] MEDS: CHOLECALCIFEROL 1,000 UNIT TABLET PO SCH (11:24)
[2018-12-23] MEDS: LISINOPRIL 5 MG TABLET PO SCH (11:24)
[2018-12-23] MEDS: CLOPIDOGREL 75 MG TABLET PO SCH (11:24)
[2018-12-23] MEDS: PHENYTOIN 100 MG CAPSULE PO SCH ×2 (11:24→20:27)
[2018-12-23] MEDS: METOPROLOL TARTRATE 25 MG TABLET PO SCH ×2 (11:24→20:27)
[2018-12-23] MEDS: OMEGA-3/FISH OIL CAPSULE PO SCH (11:25)
[2018-12-23] MEDS ORDERED: OMNIPAQUE 350 MG/ML, 100ML BOTTLE ONE (11:52)
[2018-12-23] MEDS: morphine SULFATE 10 MG/ML, 1ML IV PRN ×3 (13:38→20:26)
[2018-12-23 13:48] VITALS: BP 86/43
[2018-12-23] MEDS ORDERED: SODIUM CHLORIDE 0.9%, 500ML IVBOLUS ONE (15:00)
[2018-12-23] MEDS ORDERED: LIDOCAINE GEL 2%, 5ML TP ONE (15:17)
[2018-12-23] MEDS: DIAZEPAM 5 MG/ML, 2ML IVPush PRN (17:29)
[2018-12-23] MEDS ORDERED: MAGNESIUM SULFATE PMX 2GM/50ML 50 ML ONE (18:56)
[2018-12-23] MEDS: ATORVASTATIN 80 MG TABLET PO SCH (20:26)
[2018-12-23] MEDS ORDERED: OPIUM/BELLADONNA SUPP.RECT 16.2-30 MG PR PRN (21:30)
[2018-12-23] MEDS: OPIUM/BELLADONNA SUPP.RECT 16.2-30 MG PR PRN (21:55)
[2018-12-24] MEDS: OPIUM/BELLADONNA SUPP.RECT 16.2-30 MG PR PRN (01:57)
[2018-12-24 04:37] VITALS: BP 114/46
[2018-12-24 05:17] LABS: ANION GAP 10 mmol/L (5-15); CHLORIDE 106 mmol/L (98-107); CREATININE 1.43 mg/dL (0.7-1.3)
[2018-12-24 05:27] LABS: MEAN CORPUSCULAR HEMOGLOBIN 32.3 pg (27.5-34.5); MEAN CORPUSCULAR HGB CONC 33.5 g/dL (33.2-36.2); MEAN CORPUSCULAR VOLUME 96.5 fL (81-97); MEAN PLATELET VOLUME 8.8 fL (7.4-10.4); PLATELET COUNT 405 x10^3/uL (130-400); RED BLOOD COUNT 2.32 x10^6/uL (4.38-5.82); RED CELL DISTRIBUTION WIDTH 13.8 % (9.4-14.8)
[2018-12-24 06:00] LABS: MD YES
[2018-12-24 06:06] LABS: BAND#(MANUAL) 0.95 x10^3/uL; BANDS%(MANUAL) 5 % (0-7); LYMPH#(MANUAL) 1.33 x10^3/uL (1-3.4); LYMPHS% (MANUAL) 7 % (22-44); MONOS#(MANUAL) 0.95 x10^3/uL (0.3-2.7); MONOS% (MANUAL) 5 % (2-9); MYELOCYTES# (MANUAL) 0.19 x10^3/uL (0-0); MYELOCYTES% (MANUAL) 1 % (0-0); SEG#(MANUAL) 15.58 x10^3/uL (1.8-6.8); SEGS% (MANUAL) 82 % (42-75)
[2018-12-24 06:07] LABS: POLYCHROMASIA 1+; TARGET CELLS 1+
[2018-12-24 06:08] LABS: <PLATELET ESTIMATE> INCREASED; <PLT MORPHOLOGY> NORMAL PLT MORPH; TOXIC GRAN 1+
[2018-12-24] MEDS: ASPIRIN 325 MG TABLET EC PO SCH (06:22)
[2018-12-24] MEDS: INSULIN REGULAR, HUMAN 100 UNIT/ML 3ML VIAL LOW DOSE SS SQ-INSULIN SCH ×4 (07:00→20:49)
[2018-12-24] MEDS ORDERED: ZIPRASIDONE 20 MG INJ IM ONE (08:30)
[2018-12-24] MEDS: SENNA/DOCUSATE TABLET PO SCH (09:00)
[2018-12-24] MEDS ORDERED: SODIUM CHLORIDE 0.9%, 500ML IVBOLUS ONE ×2 (09:00→10:00)
[2018-12-24] MEDS: CINACALCET 30 MG TABLET PO SCH (09:00)
[2018-12-24] MEDS: LISINOPRIL 5 MG TABLET PO SCH (09:00)
[2018-12-24] MEDS: METOPROLOL TARTRATE 25 MG TABLET PO SCH ×2 (09:00→20:13)
[2018-12-24] MEDS: CHOLECALCIFEROL 1,000 UNIT TABLET PO SCH (10:40)
[2018-12-24] MEDS: CLOPIDOGREL 75 MG TABLET PO SCH (10:43)
[2018-12-24] MEDS: OMEGA-3/FISH OIL CAPSULE PO SCH (10:43)
[2018-12-24] MEDS: PHENYTOIN 100 MG CAPSULE PO SCH ×2 (10:43→20:13)
[2018-12-24] MEDS: NOREPINEPHRINE 4 MG in SODIUM CHLORIDE 0.9% 246 ML IV PRN (12:21)
[2018-12-24 12:24] LABS: CULTURE INDICATED? YES; MICROSCOPIC INDICATED
[2018-12-24 12:33] VITALS: BP 93/52
[2018-12-24 13:03] VITALS: BP 89/50
[2018-12-24 13:18] VITALS: BP 135/70
[2018-12-24 15:00] VITALS: BP 126/68
[2018-12-24] MEDS ORDERED: CEFTRIAXONE PMX 1GM/50ML 50 ML IV SCH (16:30)
[2018-12-24] MEDS ORDERED: SODIUM CHLORIDE 0.9% 1,000ML IVBOLUS ONE (16:30)
[2018-12-24] MEDS: HYDROcodone/APAP 5/325 TABLET PO PRN (17:41)
[2018-12-24] MEDS: ZIPRASIDONE 20 MG INJ IM PRN (20:13)
[2018-12-24] MEDS: ATORVASTATIN 80 MG TABLET PO SCH (20:13)
[2018-12-25] MEDS: NOREPINEPHRINE 4 MG in SODIUM CHLORIDE 0.9% 246 ML IV PRN (01:32)
[2018-12-25] MEDS: HYDROcodone/APAP 5/325 TABLET PO PRN ×3 (01:48→17:02)
[2018-12-25] MEDS: DIAZEPAM 5 MG/ML, 2ML IVPush PRN ×2 (02:07→08:09)
[2018-12-25] MEDS: ASPIRIN 325 MG TABLET EC PO SCH (05:02)
[2018-12-25 06:45] LABS: ANION GAP 15 mmol/L (5-15); CALCIUM 7.8 mg/dL (8.5-10.1); CHLORIDE 108 mmol/L (98-107)
[2018-12-25 06:46] LABS: MEAN CORPUSCULAR HEMOGLOBIN 32.5 pg (27.5-34.5); MEAN CORPUSCULAR VOLUME 95.6 fL (81-97); MEAN PLATELET VOLUME 8.8 fL (7.4-10.4); PLATELET COUNT 441 x10^3/uL (130-400); RED BLOOD COUNT 2.66 x10^6/uL (4.38-5.82); RED CELL DISTRIBUTION WIDTH 14.7 % (9.4-14.8)
[2018-12-25 06:49] LABS: ALANINE AMINOTRANSFERASE 57 U/L (12-78); ALKALINE PHOSPHATASE 136 U/L (45-117); BILIRUBIN,TOTAL 0.6 mg/dL (0.2-1.0); CREATININE 1.95 mg/dL (0.7-1.3); TOTAL PROTEIN 5.9 g/dL (6.4-8.2)
[2018-12-25 07:04] LABS: MD YES
[2018-12-25 07:05] LABS: BAND#(MANUAL) 1.16 x10^3/uL; BANDS%(MANUAL) 5 % (0-7); LYMPH#(MANUAL) 0.46 x10^3/uL (1-3.4); LYMPHS% (MANUAL) 2 % (22-44); MONOS#(MANUAL) 0.23 x10^3/uL (0.3-2.7); MONOS% (MANUAL) 1 % (2-9); SEG#(MANUAL) 21.34 x10^3/uL (1.8-6.8); SEGS% (MANUAL) 92 % (42-75)
[2018-12-25 07:06] LABS: <PLATELET ESTIMATE> INCREASED; LARGE PLATELETS 1+; POLYCHROMASIA 1+
[2018-12-25] MEDS: INSULIN REGULAR, HUMAN 100 UNIT/ML 3ML VIAL LOW DOSE SS SQ-INSULIN SCH ×4 (08:09→21:00)
[2018-12-25] MEDS ORDERED: PHARMACY MAY ADJ FOR RENAL FX MC PRN (09:00)
[2018-12-25] MEDS: LISINOPRIL 5 MG TABLET PO SCH (09:00)
[2018-12-25] MEDS: METOPROLOL TARTRATE 25 MG TABLET PO SCH (09:00)
[2018-12-25] MEDS ORDERED: VANCOMYCIN PER PHARMACY MC PRN (09:00)
[2018-12-25] MEDS ORDERED: PHENAZOPYRIDINE 200 MG TABLET PO PRN (09:00)
[2018-12-25] MEDS ORDERED: VANCOMYCIN PMX 1GM/200ML 200 ML IV ONE (09:00)
[2018-12-25] MEDS: PHENYTOIN 100 MG CAPSULE PO SCH ×2 (09:24→22:36)
[2018-12-25] MEDS: CLOPIDOGREL 75 MG TABLET PO SCH (09:24)
[2018-12-25] MEDS: SENNA/DOCUSATE TABLET PO SCH (09:25)
[2018-12-25] MEDS: OMEGA-3/FISH OIL CAPSULE PO SCH (09:25)
[2018-12-25] MEDS: CINACALCET 30 MG TABLET PO SCH (09:25)
[2018-12-25] MEDS: CHOLECALCIFEROL 1,000 UNIT TABLET PO SCH (09:25)
[2018-12-25] MEDS ORDERED: VANCOMYCIN 1,900 MG in SODIUM CHLORIDE 0.9% 250 ML IV ONE (10:00)
[2018-12-25] MEDS ORDERED: PHARMACOKINETIC MONITORING MC PRN (10:00)
[2018-12-25] MEDS: PHENAZOPYRIDINE 200 MG TABLET PO PRN (10:01)
[2018-12-25] MEDS: PIPERACILLIN/TAZO/PMX 3.375GM 50 ML IV SCH ×3 (10:02→22:35)
[2018-12-25] MEDS ORDERED: NOREPINEPHRINE 8 MG in SODIUM CHLORIDE 0.9% 242 ML IV PRN (13:30)
[2018-12-25] MEDS: OXYBUTYNIN CHLORIDE 5 MG TABLET PO SCH ×2 (16:21→21:00)
[2018-12-25] MEDS: ZIPRASIDONE 20 MG INJ IM PRN (17:15)
[2018-12-25] MEDS ORDERED: SODIUM CHLORIDE 0.9% 1,000 ML IV SCH (17:30)
[2018-12-25] MEDS: ATORVASTATIN 80 MG TABLET PO SCH (22:35)
[2018-12-25] MEDS: SODIUM CHLORIDE 0.9% 1,000 ML IV SCH (22:36)
[2018-12-26] MEDS: PIPERACILLIN/TAZO/PMX 3.375GM 50 ML IV SCH ×4 (04:08→23:40)
[2018-12-26] MEDS: HYDROcodone/APAP 5/325 TABLET PO PRN ×2 (04:20→17:14)
[2018-12-26 04:52] LABS: ALBUMIN 1.9 g/dL (3.4-5.0); ANION GAP 17 mmol/L (5-15); CALCIUM 7.8 mg/dL (8.5-10.1); CHLORIDE 122 mmol/L (98-107)
[2018-12-26 04:54] LABS: ALANINE AMINOTRANSFERASE 61 U/L (12-78); ALKALINE PHOSPHATASE 140 U/L (45-117); BILIRUBIN,TOTAL 0.7 mg/dL (0.2-1.0); CREATININE 1.91 mg/dL (0.7-1.3); TOTAL PROTEIN 6.1 g/dL (6.4-8.2); VANCOMYCIN,RANDOM 14.7 mcg/mL
[2018-12-26 05:00] LABS: MEAN CORPUSCULAR HEMOGLOBIN 31.7 pg (27.5-34.5); MEAN CORPUSCULAR HGB CONC 32.7 g/dL (33.2-36.2); MEAN CORPUSCULAR VOLUME 97.1 fL (81-97); PLATELET COUNT 460 x10^3/uL (130-400); RED BLOOD COUNT 2.82 x10^6/uL (4.38-5.82); RED CELL DISTRIBUTION WIDTH 14.5 % (9.4-14.8)
[2018-12-26] MEDS: SODIUM CHLORIDE 0.9% 1,000 ML IV SCH ×2 (05:27→13:03)
[2018-12-26] MEDS: ASPIRIN 325 MG TABLET EC PO SCH (05:27)
[2018-12-26 05:44] LABS: BASOPHILS % (AUTO) 0 % (0-1); EOSINOPHILS # (AUTO) 0.01 x10^3/uL (0-0.4); EOSINOPHILS % (AUTO) 0 % (1-7); LYMPHOCYTES % (AUTO) 6 % (22-44); MD SCAN; MONOCYTES # (AUTO) 0.44 x10^3/uL (0.2-0.8); MONOCYTES % (AUTO) 3 % (2-9); NEUTROPHILS # (AUTO) 14.33 x10^3/uL (1.8-6.8); NEUTROPHILS % (AUTO) 91 % (42-75)
[2018-12-26 05:57] LABS: ALANINE AMINOTRANSFERASE 61 U/L (12-78); ANION GAP 18 mmol/L (5-15); CALCIUM 7.7 mg/dL (8.5-10.1); CHLORIDE 105 mmol/L (98-107); CREATININE 1.91 mg/dL (0.7-1.3)
[2018-12-26 06:00] LABS: ALKALINE PHOSPHATASE 137 U/L (45-117); TOTAL PROTEIN 6.1 g/dL (6.4-8.2)
[2018-12-26] MEDS: INSULIN REGULAR, HUMAN 100 UNIT/ML 3ML VIAL LOW DOSE SS SQ-INSULIN SCH ×4 (07:00→22:41)
[2018-12-26] MEDS: ALBUMIN HUMAN 25% 100 ML IV SCH ×2 (09:00→22:17)
[2018-12-26] MEDS: SENNA/DOCUSATE TABLET PO SCH (09:00)
[2018-12-26] MEDS: OXYBUTYNIN CHLORIDE 5 MG TABLET PO SCH (09:00)
[2018-12-26] MEDS: CINACALCET 30 MG TABLET PO SCH (09:17)
[2018-12-26] MEDS: CLOPIDOGREL 75 MG TABLET PO SCH (09:17)
[2018-12-26] MEDS: OMEGA-3/FISH OIL CAPSULE PO SCH (09:17)
[2018-12-26] MEDS: CHOLECALCIFEROL 1,000 UNIT TABLET PO SCH (09:17)
[2018-12-26] MEDS: PHENYTOIN 100 MG CAPSULE PO SCH ×2 (09:26→22:17)
[2018-12-26] MEDS: FUROSEMIDE 20 MG/2 ML IV SCH ×2 (10:19→21:41)
[2018-12-26] MEDS: PHENAZOPYRIDINE 200 MG TABLET PO PRN (11:30)
[2018-12-26] MEDS ORDERED: VANCOMYCIN 1,500 MG in SODIUM CHLORIDE 0.9% 250 ML IV ONE (13:00)
[2018-12-26] MEDS ORDERED: VANCOMYCIN 1,700 MG in SODIUM CHLORIDE 0.9% 250 ML IV ONE (13:00)
[2018-12-26] MEDS ORDERED: morphine SULFATE 10 MG/ML, 1ML IV PRN (16:30)
[2018-12-26] MEDS: ATORVASTATIN 80 MG TABLET PO SCH (21:40)
[2018-12-27] MEDS: SODIUM CHLORIDE 0.9% 1,000 ML IV SCH (01:40)
[2018-12-27 03:14] LABS: BASOPHILS # (AUTO) 0.04 x10^3/uL (0-0.1); BASOPHILS % (AUTO) 0 % (0-1); EOSINOPHILS # (AUTO) 0.14 x10^3/uL (0-0.4); EOSINOPHILS % (AUTO) 2 % (1-7); LYMPHOCYTES # (AUTO) 0.57 x10^3/uL (1-3.4); LYMPHOCYTES % (AUTO) 6 % (22-44); MD NO; MEAN CORPUSCULAR HEMOGLOBIN 31.9 pg (27.5-34.5); MEAN CORPUSCULAR HGB CONC 33.4 g/dL (33.2-36.2); MEAN CORPUSCULAR VOLUME 95.5 fL (81-97); MEAN PLATELET VOLUME 8.5 fL (7.4-10.4); MONOCYTES # (AUTO) 0.44 x10^3/uL (0.2-0.8); MONOCYTES % (AUTO) 5 % (2-9); NEUTROPHILS # (AUTO) 7.84 x10^3/uL (1.8-6.8); NEUTROPHILS % (AUTO) 87 % (42-75); PLATELET COUNT 387 x10^3/uL (130-400); RED BLOOD COUNT 2.49 x10^6/uL (4.38-5.82); RED CELL DISTRIBUTION WIDTH 14.3 % (9.4-14.8)
[2018-12-27 03:16] LABS: ALANINE AMINOTRANSFERASE 49 U/L (12-78); ALBUMIN 2.6 g/dL (3.4-5.0); ANION GAP 8 mmol/L (5-15); CALCIUM 7.7 mg/dL (8.5-10.1); CHLORIDE 111 mmol/L (98-107); CREATININE 1.89 mg/dL (0.7-1.3)
[2018-12-27 03:19] LABS: ALKALINE PHOSPHATASE 115 U/L (45-117); BILIRUBIN,TOTAL 0.6 mg/dL (0.2-1.0)
[2018-12-27] MEDS: PIPERACILLIN/TAZO/PMX 3.375GM 50 ML IV SCH ×4 (04:54→23:08)
[2018-12-27] MEDS: ASPIRIN 325 MG TABLET EC PO SCH (04:54)
[2018-12-27] MEDS: PHENYTOIN 100 MG CAPSULE PO SCH ×2 (08:41→21:24)
[2018-12-27] MEDS: INSULIN REGULAR, HUMAN 100 UNIT/ML 3ML VIAL LOW DOSE SS SQ-INSULIN SCH ×4 (08:41→21:24)
[2018-12-27] MEDS: CLOPIDOGREL 75 MG TABLET PO SCH (08:41)
[2018-12-27] MEDS: CHOLECALCIFEROL 1,000 UNIT TABLET PO SCH (08:42)
[2018-12-27] MEDS: CINACALCET 30 MG TABLET PO SCH (08:42)
[2018-12-27] MEDS: SENNA/DOCUSATE TABLET PO SCH (08:42)
[2018-12-27] MEDS: OMEGA-3/FISH OIL CAPSULE PO SCH (08:42)
[2018-12-27] MEDS ORDERED: FUROSEMIDE 20 MG/2 ML IV ONE (12:30)
[2018-12-27] MEDS ORDERED: POTASSIUM CHLORIDE 20 MEQ TAB.ER.PRT PO ONE (12:30)
[2018-12-27] MEDS: POTASSIUM CHLORIDE 20 MEQ TAB.ER.PRT PO SCH (16:52)
[2018-12-27] MEDS: FUROSEMIDE 20 MG/2 ML IV SCH (16:52)
[2018-12-27 17:20] VITALS: BP 112/67
[2018-12-27 19:20] VITALS: BP 127/75
[2018-12-27] MEDS: ATORVASTATIN 80 MG TABLET PO SCH (21:24)
[2018-12-28 00:42] VITALS: BP 101/55
[2018-12-28] MEDS: HYDROcodone/APAP 5/325 TABLET PO PRN ×4 (03:08→23:37)
[2018-12-28] MEDS: PIPERACILLIN/TAZO/PMX 3.375GM 50 ML IV SCH ×4 (05:25→23:34)
[2018-12-28] MEDS: ASPIRIN 325 MG TABLET EC PO SCH (05:30)
[2018-12-28 05:43] LABS: BASOPHILS # (AUTO) 0.04 x10^3/uL (0-0.1); BASOPHILS % (AUTO) 1 % (0-1); EOSINOPHILS # (AUTO) 0.09 x10^3/uL (0-0.4); EOSINOPHILS % (AUTO) 1 % (1-7); LYMPHOCYTES # (AUTO) 0.66 x10^3/uL (1-3.4); LYMPHOCYTES % (AUTO) 8 % (22-44); MD NO; MEAN CORPUSCULAR HEMOGLOBIN 32.4 pg (27.5-34.5); MEAN CORPUSCULAR HGB CONC 33.9 g/dL (33.2-36.2); MEAN CORPUSCULAR VOLUME 95.6 fL (81-97); MEAN PLATELET VOLUME 8.4 fL (7.4-10.4); MONOCYTES % (AUTO) 5 % (2-9); NEUTROPHILS # (AUTO) 7.39 x10^3/uL (1.8-6.8); NEUTROPHILS % (AUTO) 86 % (42-75); PLATELET COUNT 410 x10^3/uL (130-400); RED BLOOD COUNT 2.65 x10^6/uL (4.38-5.82); RED CELL DISTRIBUTION WIDTH 14.5 % (9.4-14.8)
[2018-12-28 05:56] LABS: ANION GAP 6 mmol/L (5-15); CALCIUM 8.1 mg/dL (8.5-10.1); CHLORIDE 109 mmol/L (98-107); CREATININE 1.54 mg/dL (0.7-1.3)
[2018-12-28 07:53] VITALS: BP 126/83
[2018-12-28] MEDS: INSULIN REGULAR, HUMAN 100 UNIT/ML 3ML VIAL LOW DOSE SS SQ-INSULIN SCH ×2 (08:21→12:05)
[2018-12-28] MEDS: CINACALCET 30 MG TABLET PO SCH (09:53)
[2018-12-28] MEDS: CLOPIDOGREL 75 MG TABLET PO SCH (09:53)
[2018-12-28] MEDS: POTASSIUM CHLORIDE 20 MEQ TAB.ER.PRT PO SCH ×2 (09:53→17:08)
[2018-12-28] MEDS: SENNA/DOCUSATE TABLET PO SCH (09:53)
[2018-12-28] MEDS: FUROSEMIDE 20 MG/2 ML IV SCH ×2 (09:53→17:07)
[2018-12-28] MEDS: PHENYTOIN 100 MG CAPSULE PO SCH ×2 (09:53→21:24)
[2018-12-28] MEDS: CHOLECALCIFEROL 1,000 UNIT TABLET PO SCH (09:54)
[2018-12-28] MEDS: OMEGA-3/FISH OIL CAPSULE PO SCH (09:54)
[2018-12-28 12:43] VITALS: BP 118/72
[2018-12-28] MEDS: INSULIN REGULAR 100 UNITS/ML, 3ML VIAL SQ-INSULIN SCH ×2 (17:07→21:00)
[2018-12-28 19:02] VITALS: BP 116/72
[2018-12-28] MEDS: ATORVASTATIN 80 MG TABLET PO SCH (21:24)
[2018-12-29 01:38] VITALS: BP 139/76
[2018-12-29 05:14] LABS: BASOPHILS # (AUTO) 0.02 x10^3/uL (0-0.1); BASOPHILS % (AUTO) 0 % (0-1); EOSINOPHILS # (AUTO) 0.26 x10^3/uL (0-0.4); EOSINOPHILS % (AUTO) 4 % (1-7); LYMPHOCYTES % (AUTO) 11 % (22-44); MD NO; MEAN CORPUSCULAR HEMOGLOBIN 31.9 pg (27.5-34.5); MEAN CORPUSCULAR HGB CONC 33.3 g/dL (33.2-36.2); MEAN CORPUSCULAR VOLUME 95.9 fL (81-97); MEAN PLATELET VOLUME 8.5 fL (7.4-10.4); MONOCYTES # (AUTO) 0.54 x10^3/uL (0.2-0.8); MONOCYTES % (AUTO) 8 % (2-9); NEUTROPHILS # (AUTO) 5.56 x10^3/uL (1.8-6.8); NEUTROPHILS % (AUTO) 78 % (42-75); PLATELET COUNT 466 x10^3/uL (130-400); RED BLOOD COUNT 2.76 x10^6/uL (4.38-5.82); RED CELL DISTRIBUTION WIDTH 14.6 % (9.4-14.8)
[2018-12-29] MEDS: ASPIRIN 325 MG TABLET EC PO SCH (05:24)
[2018-12-29] MEDS: PIPERACILLIN/TAZO/PMX 3.375GM 50 ML IV SCH ×4 (05:24→23:06)
[2018-12-29 05:25] LABS: ANION GAP 3 mmol/L (5-15); CALCIUM 7.8 mg/dL (8.5-10.1); CHLORIDE 110 mmol/L (98-107); CREATININE 1.48 mg/dL (0.7-1.3)
[2018-12-29 07:39] VITALS: BP 112/72
[2018-12-29] MEDS: PHENYTOIN 100 MG CAPSULE PO SCH ×2 (08:27→21:56)
[2018-12-29] MEDS: CLOPIDOGREL 75 MG TABLET PO SCH (08:28)
[2018-12-29] MEDS: OMEGA-3/FISH OIL CAPSULE PO SCH (08:28)
[2018-12-29] MEDS: POTASSIUM CHLORIDE 20 MEQ TAB.ER.PRT PO SCH (08:29)
[2018-12-29] MEDS: CHOLECALCIFEROL 1,000 UNIT TABLET PO SCH (08:29)
[2018-12-29] MEDS: SENNA/DOCUSATE TABLET PO SCH (08:29)
[2018-12-29] MEDS: CINACALCET 30 MG TABLET PO SCH (08:30)
[2018-12-29] MEDS: FUROSEMIDE 20 MG/2 ML IV SCH ×2 (08:30→16:42)
[2018-12-29] MEDS: INSULIN REGULAR 100 UNITS/ML, 3ML VIAL SQ-INSULIN SCH ×4 (08:31→22:03)
[2018-12-29 12:41] VITALS: BP 110/68
[2018-12-29] MEDS: HYDROcodone/APAP 5/325 TABLET PO PRN (15:54)
[2018-12-29 20:36] VITALS: BP 119/71
[2018-12-29] MEDS: ATORVASTATIN 80 MG TABLET PO SCH (21:56)
[2018-12-30 01:29] VITALS: BP 141/73
[2018-12-30] MEDS: PIPERACILLIN/TAZO/PMX 3.375GM 50 ML IV SCH ×4 (05:06→22:01)
[2018-12-30] MEDS: HYDROcodone/APAP 5/325 TABLET PO PRN ×3 (05:06→23:02)
[2018-12-30] MEDS: ASPIRIN 325 MG TABLET EC PO SCH (05:06)
[2018-12-30 05:28] LABS: BASOPHILS # (AUTO) 0.04 x10^3/uL (0-0.1); BASOPHILS % (AUTO) 1 % (0-1); EOSINOPHILS # (AUTO) 0.28 x10^3/uL (0-0.4); EOSINOPHILS % (AUTO) 3 % (1-7); LYMPHOCYTES # (AUTO) 1.33 x10^3/uL (1-3.4); LYMPHOCYTES % (AUTO) 16 % (22-44); MD NO; MEAN CORPUSCULAR HEMOGLOBIN 31.3 pg (27.5-34.5); MEAN CORPUSCULAR HGB CONC 32.5 g/dL (33.2-36.2); MEAN CORPUSCULAR VOLUME 96.3 fL (81-97); MEAN PLATELET VOLUME 8.4 fL (7.4-10.4); MONOCYTES # (AUTO) 0.66 x10^3/uL (0.2-0.8); MONOCYTES % (AUTO) 8 % (2-9); NEUTROPHILS # (AUTO) 6.05 x10^3/uL (1.8-6.8); NEUTROPHILS % (AUTO) 72 % (42-75); PLATELET COUNT 524 x10^3/uL (130-400); RED BLOOD COUNT 2.91 x10^6/uL (4.38-5.82)
[2018-12-30 05:32] LABS: ALBUMIN 2.4 g/dL (3.4-5.0); ANION GAP 6 mmol/L (5-15); CHLORIDE 106 mmol/L (98-107)
[2018-12-30 05:36] LABS: ALANINE AMINOTRANSFERASE 43 U/L (12-78); ALKALINE PHOSPHATASE 169 U/L (45-117); BILIRUBIN,TOTAL 0.4 mg/dL (0.2-1.0); CREATININE 1.31 mg/dL (0.7-1.3); TOTAL PROTEIN 6.5 g/dL (6.4-8.2)
[2018-12-30 07:45] VITALS: BP 129/76
[2018-12-30] MEDS: INSULIN REGULAR 100 UNITS/ML, 3ML VIAL SQ-INSULIN SCH ×4 (08:54→20:28)
[2018-12-30] MEDS: PHENYTOIN 100 MG CAPSULE PO SCH ×2 (08:56→20:21)
[2018-12-30] MEDS: OMEGA-3/FISH OIL CAPSULE PO SCH (08:56)
[2018-12-30] MEDS: POTASSIUM CHLORIDE 20 MEQ TAB.ER.PRT PO SCH (08:57)
[2018-12-30] MEDS: CLOPIDOGREL 75 MG TABLET PO SCH (08:57)
[2018-12-30] MEDS: CHOLECALCIFEROL 1,000 UNIT TABLET PO SCH (08:58)
[2018-12-30] MEDS: CINACALCET 30 MG TABLET PO SCH (08:58)
[2018-12-30] MEDS: SENNA/DOCUSATE TABLET PO SCH (08:58)
[2018-12-30] MEDS: FUROSEMIDE 20 MG/2 ML IV SCH ×2 (08:59→17:09)
[2018-12-30] MEDS ORDERED: OMEG1CAP6 PO (10:06)
[2018-12-30] MEDS ORDERED: LACT20SO13 PO (10:06)
[2018-12-30] MEDS ORDERED: CHOL10003 PO (10:06)
[2018-12-30] MEDS ORDERED: NITR0.4T41 SL (10:06)
[2018-12-30] MEDS ORDERED: INSU100V5 SQ-INSULIN (10:06)
[2018-12-30] MEDS ORDERED: POTA20TA6 PO (10:06)
[2018-12-30] MEDS ORDERED: MAGN64TA7 PO (10:06)
[2018-12-30] MEDS ORDERED: SENN-177 PO (10:06)
[2018-12-30] MEDS ORDERED: CINA30TA2 PO (10:06)
[2018-12-30] MEDS ORDERED: PHEN100C PO (10:06)
[2018-12-30] MEDS ORDERED: POLY17PO5 PO (10:06)
[2018-12-30] MEDS ORDERED: ATOR-2 PO (10:06)
[2018-12-30] MEDS ORDERED: BISA10SU54 PR (10:06)
[2018-12-30] MEDS ORDERED: CLOP75TA PO (10:06)
[2018-12-30] MEDS ORDERED: FURO40TA6 PO (10:06)
[2018-12-30] MEDS ORDERED: ASPI-650 PO (10:06)
[2018-12-30] MEDS ORDERED: CARV3.122 PO (10:09)
[2018-12-30] MEDS ORDERED: LOSA25TA25 PO (10:09)
[2018-12-30] MEDS ORDERED: PIPE3.373 IV (10:59)
[2018-12-30] MEDS: LOSARTAN 25MG TABLET PO SCH (11:04)
[2018-12-30 13:30] VITALS: BP 117/65
[2018-12-30] MEDS: SODIUM CHLORIDE NASAL SPRAY 45ML BOTTLE NAS PRN ×2 (16:11→20:40)
[2018-12-30] MEDS: CARVEDILOL 3.125 MG TABLET PO SCH (18:06)
[2018-12-30 18:48] VITALS: BP 103/59
[2018-12-30] MEDS: ATORVASTATIN 80 MG TABLET PO SCH (20:18)
[2018-12-31 01:00] VITALS: BP 93/55
[2018-12-31] MEDS: PIPERACILLIN/TAZO/PMX 3.375GM 50 ML IV SCH ×4 (04:16→22:23)
[2018-12-31] MEDS: ASPIRIN 325 MG TABLET EC PO SCH (05:51)
[2018-12-31] MEDS: CARVEDILOL 3.125 MG TABLET PO SCH ×2 (05:51→17:40)
[2018-12-31 05:52] VITALS: BP 114/72
[2018-12-31 08:09] VITALS: BP 117/65
[2018-12-31] MEDS: CHOLECALCIFEROL 1,000 UNIT TABLET PO SCH (08:35)
[2018-12-31] MEDS: OMEGA-3/FISH OIL CAPSULE PO SCH (08:35)
[2018-12-31] MEDS: CLOPIDOGREL 75 MG TABLET PO SCH (08:35)
[2018-12-31] MEDS: CINACALCET 30 MG TABLET PO SCH (08:35)
[2018-12-31] MEDS: PHENYTOIN 100 MG CAPSULE PO SCH ×2 (08:36→20:50)
[2018-12-31] MEDS: HYDROcodone/APAP 5/325 TABLET PO PRN ×2 (08:36→20:50)
[2018-12-31] MEDS: SENNA/DOCUSATE TABLET PO SCH (08:36)
[2018-12-31] MEDS: FUROSEMIDE 20 MG/2 ML IV SCH ×2 (08:37→17:40)
[2018-12-31] MEDS: INSULIN REGULAR 100 UNITS/ML, 3ML VIAL SQ-INSULIN SCH ×4 (08:37→20:54)
[2018-12-31] MEDS: POTASSIUM CHLORIDE 20 MEQ TAB.ER.PRT PO SCH (08:39)
[2018-12-31] MEDS: SODIUM CHLORIDE NASAL SPRAY 45ML BOTTLE NAS PRN ×2 (08:40→20:49)
[2018-12-31] MEDS: LOSARTAN 25MG TABLET PO SCH (09:07)
[2018-12-31 14:47] VITALS: BP 112/62
[2018-12-31 20:39] VITALS: BP 109/64
[2018-12-31] MEDS: ATORVASTATIN 80 MG TABLET PO SCH (20:50)
[2019-01-01 02:38] VITALS: BP 126/69
[2019-01-01] MEDS: PIPERACILLIN/TAZO/PMX 3.375GM 50 ML IV SCH ×2 (04:43→11:36)
[2019-01-01] MEDS: ASPIRIN 325 MG TABLET EC PO SCH (04:59)
[2019-01-01] MEDS: CARVEDILOL 3.125 MG TABLET PO SCH (05:00)
[2019-01-01 05:02] LABS: BASOPHILS # (AUTO) 0.04 x10^3/uL (0-0.1); BASOPHILS % (AUTO) 1 % (0-1); EOSINOPHILS # (AUTO) 0.33 x10^3/uL (0-0.4); EOSINOPHILS % (AUTO) 4 % (1-7); LYMPHOCYTES # (AUTO) 1.15 x10^3/uL (1-3.4); LYMPHOCYTES % (AUTO) 13 % (22-44); MD NO; MEAN CORPUSCULAR HEMOGLOBIN 31.8 pg (27.5-34.5); MEAN CORPUSCULAR HGB CONC 33.1 g/dL (33.2-36.2); MEAN CORPUSCULAR VOLUME 96.3 fL (81-97); MEAN PLATELET VOLUME 7.9 fL (7.4-10.4); MONOCYTES # (AUTO) 0.42 x10^3/uL (0.2-0.8); MONOCYTES % (AUTO) 5 % (2-9); NEUTROPHILS # (AUTO) 6.96 x10^3/uL (1.8-6.8); NEUTROPHILS % (AUTO) 78 % (42-75); PLATELET COUNT 446 x10^3/uL (130-400); RED BLOOD COUNT 2.69 x10^6/uL (4.38-5.82); RED CELL DISTRIBUTION WIDTH 15.3 % (9.4-14.8)
[2019-01-01 05:19] LABS: CHLORIDE 108 mmol/L (98-107)
[2019-01-01 05:40] LABS: ALANINE AMINOTRANSFERASE 31 U/L (12-78); ALKALINE PHOSPHATASE 161 U/L (45-117); ANION GAP 5 mmol/L (5-15); BILIRUBIN,TOTAL 0.3 mg/dL (0.2-1.0); CALCIUM 7.2 mg/dL (8.5-10.1); CREATININE 1.16 mg/dL (0.7-1.3); TOTAL PROTEIN 5.8 g/dL (6.4-8.2)
[2019-01-01 06:40] VITALS: BP 105/67
[2019-01-01] MEDS: INSULIN REGULAR 100 UNITS/ML, 3ML VIAL SQ-INSULIN SCH ×2 (07:00→11:42)
[2019-01-01] MEDS ORDERED: HYDR-3237 PO (08:24)
[2019-01-01] MEDS ORDERED: CARV3.1212 PO (08:24)
[2019-01-01] MEDS ORDERED: LOSA25TA25 PO (08:24)
[2019-01-01] MEDS ORDERED: FURO40TA6 PO (08:29)
[2019-01-01] MEDS ORDERED: POTA10TA PO (08:29)
[2019-01-01] MEDS: SENNA/DOCUSATE TABLET PO SCH (09:59)
[2019-01-01] MEDS: LOSARTAN 25MG TABLET PO SCH (09:59)
[2019-01-01] MEDS: CLOPIDOGREL 75 MG TABLET PO SCH (09:59)
[2019-01-01] MEDS: CHOLECALCIFEROL 1,000 UNIT TABLET PO SCH (09:59)
[2019-01-01] MEDS: OMEGA-3/FISH OIL CAPSULE PO SCH (09:59)
[2019-01-01] MEDS: FUROSEMIDE 20 MG/2 ML IV SCH (09:59)
[2019-01-01] MEDS: CINACALCET 30 MG TABLET PO SCH (10:00)
[2019-01-01] MEDS: PHENYTOIN 100 MG CAPSULE PO SCH (10:00)
[2019-01-01 12:57] VITALS: BP 115/58
== END 2019-01-01 17:09 | DRG 270 ==
LOC: ORIP 06:15 → 4NOR 13:16 → 5SO 12-15 03:10 → CCU 12-23 15:56 → ICU 12-26 20:43 → 5SO 12-27 17:14
PROVIDERS: ADMIT Surgery Vascular Surgery; ATTEND Internal Medicine
PROC: 04UK0KZ Supplement Right Femoral Artery with Nonautologous Tissue Substitute, Open Approach (ICD-10-PCS; 2018-12-13)
PROC: 041L0ZH Bypass Left Femoral Artery to Right Femoral Artery, Open Approach (ICD-10-PCS; 2018-12-13)
PROC: 047D3DZ Dilation of Left Common Iliac Artery with Intraluminal Device, Percutaneous Approach (ICD-10-PCS; 2018-12-13)
PROC: 047J3EZ Dilation of Left External Iliac Artery with Two Intraluminal Devices, Percutaneous Approach (ICD-10-PCS; 2018-12-13)
PROC: 04UL0JZ Supplement Left Femoral Artery with Synthetic Substitute, Open Approach (ICD-10-PCS; 2018-12-13)
PROC: B41G1ZZ Fluoroscopy of Left Lower Extremity Arteries using Low Osmolar Contrast (ICD-10-PCS; 2018-12-13)
PROC: B41F1ZZ Fluoroscopy of Right Lower Extremity Arteries using Low Osmolar Contrast (ICD-10-PCS; 2018-12-13)
PROC: 04CK0ZZ Extirpation of Matter from Right Femoral Artery, Open Approach (ICD-10-PCS; principal; 2018-12-13 07:30)
PROC: 04CJ0ZZ Extirpation of Matter from Left External Iliac Artery, Open Approach (ICD-10-PCS; 2018-12-14)
PROC: 04CL0ZZ Extirpation of Matter from Left Femoral Artery, Open Approach (ICD-10-PCS; 2018-12-14)
PROC: 047J3DZ Dilation of Left External Iliac Artery with Intraluminal Device, Percutaneous Approach (ICD-10-PCS; 2018-12-14)
PROC: B4101ZZ Fluoroscopy of Abdominal Aorta using Low Osmolar Contrast (ICD-10-PCS; 2018-12-14)
PROC: 4A023N7 Measurement of Cardiac Sampling and Pressure, Left Heart, Percutaneous Approach (ICD-10-PCS; 2018-12-20)
PROC: B2111ZZ Fluoroscopy of Multiple Coronary Arteries using Low Osmolar Contrast (ICD-10-PCS; 2018-12-20)
PROC: 30233N1 Transfusion of Nonautologous Red Blood Cells into Peripheral Vein, Percutaneous Approach (ICD-10-PCS; 2018-12-24)
PROC: 02HV33Z Insertion of Infusion Device into Superior Vena Cava, Percutaneous Approach (ICD-10-PCS; 2018-12-24)
PROC: B548ZZA Ultrasonography of Superior Vena Cava, Guidance (ICD-10-PCS; 2018-12-24)
PROC: 0T9B70Z Drainage of Bladder with Drainage Device, Via Natural or Artificial Opening (ICD-10-PCS; 2018-12-24)
DX: E11.51 Type 2 diabetes mellitus with diabetic peripheral angiopathy without gangrene (principal); R57.0 Cardiogenic shock; E43 Unspecified severe protein-calorie malnutrition; G93.41 Metabolic encephalopathy; I50.23 Acute on chronic systolic (congestive) heart failure; J96.00 Acute respiratory failure, unspecified whether with hypoxia or hypercapnia; T82.868A Thrombosis due to vascular prosthetic devices, implants and grafts, initial encounter; N39.0 Urinary tract infection, site not specified; N17.9 Acute kidney failure, unspecified; I73.9 Peripheral vascular disease, unspecified; I70.8 Atherosclerosis of other arteries; D64.9 Anemia, unspecified; E11.65 Type 2 diabetes mellitus with hyperglycemia; E86.0 Dehydration; F32.9 Major depressive disorder, single episode, unspecified; I11.0 Hypertensive heart disease with heart failure; I25.10 Atherosclerotic heart disease of native coronary artery without angina pectoris; I35.8 Other nonrheumatic aortic valve disorders; N40.1 Benign prostatic hyperplasia with lower urinary tract symptoms; N43.3 Hydrocele, unspecified; N50.3 Cyst of epididymis; R33.8 Other retention of urine; Z22.39 Carrier of other specified bacterial diseases; Z79.02 Long term (current) use of antithrombotics/antiplatelets; Z79.82 Long term (current) use of aspirin; Z79.899 Other long term (current) drug therapy; Z87.891 Personal history of nicotine dependence; Z95.828 Presence of other vascular implants and grafts; Y83.2 Surgical operation with anastomosis, bypass or graft as the cause of abnormal reaction of the patient, or of later complication, without mention of misadventure at the time of the procedure; Y92.238 Other place in hospital as the place of occurrence of the external cause
CPT/HCPCS: 36415; 36573; 36600; 71045; 74177; 75710; 76870; 80048; 80053; 80061; 80202; 81001; 82040; 82140; 82533; 82550; 82553; 82803; 82962; 83036; 83605; 83735; 83880; 84100; 84145; 84484; 85014; 85018; 85025; 85520; 86850; 86900; 86923; 87040; 87077; 87081; 87086; 87186; 93005; 93306; 93308; 93321; 93325; 93458; 94640; 99156; C1768; C1769; C1894; G0378; J0583; J0690; J0696; J1100; J1644; J1815; J1940; J2250; J2405; J2543; J2704; J2710; J2720; J3010; J3360; J3370; J3486; J7620; P9047; Q9967; C1751; C1757; C1876; J2060; J2270; J2370; J2440; J3475; J7030; J7040; J7050; J7120; P9016

== ENCOUNTER 2019-01-21 16:19 | Emergency (ER) | payer MEDICARE ==
[~2019-01-21] VITALS: Ht 177.8 cm; Wt 69.3 kg
[~2019-01-21 16:19] MED LIST changes: +ASPI-650 PO; +ATOR-2 PO; +BISA10SU54 PR; +CARV3.1212 PO; +CARV3.122 PO; +CHOL10003 PO; +CINA30TA2 PO; +CLOP75TA PO; +FURO40TA6 PO; +HYDR-3237 PO; +INSU100V5 SQ-INSULIN; +LACT20SO13 PO; +LISI5TAB7 PO; +LOSA25TA25 PO; +MAGN64TA7 PO; +METO25TA35 PO; +NITR0.4T41 SL; +OMEG1CAP6 PO; +PIPE3.373 IV; +POLY17PO5 PO; +POTA10TA PO; +POTA20TA6 PO; +SENN-177 PO
[2019-01-21 18:15] LABS: BASOPHILS # (AUTO) 0.02 x10^3/uL (0-0.1); BASOPHILS % (AUTO) 0 % (0-1); EOSINOPHILS # (AUTO) 0.29 x10^3/uL (0-0.4); EOSINOPHILS % (AUTO) 4 % (1-7); LYMPHOCYTES # (AUTO) 2.04 x10^3/uL (1-3.4); LYMPHOCYTES % (AUTO) 25 % (22-44); MD NO; MEAN CORPUSCULAR HEMOGLOBIN 31.3 pg (27.5-34.5); MEAN CORPUSCULAR HGB CONC 32.2 g/dL (33.2-36.2); MEAN CORPUSCULAR VOLUME 97.4 fL (81-97); MEAN PLATELET VOLUME 8.1 fL (7.4-10.4); MONOCYTES # (AUTO) 0.69 x10^3/uL (0.2-0.8); MONOCYTES % (AUTO) 9 % (2-9); NEUTROPHILS # (AUTO) 5.05 x10^3/uL (1.8-6.8); NEUTROPHILS % (AUTO) 62 % (42-75); PLATELET COUNT 499 x10^3/uL (130-400); RED CELL DISTRIBUTION WIDTH 15.6 % (9.4-14.8)
[2019-01-21 18:27] LABS: MICROSCOPIC NOT IND
[2019-01-21 18:28] LABS: ALANINE AMINOTRANSFERASE 45 U/L (12-78); ALBUMIN 2.9 g/dL (3.4-5.0); ANION GAP 8 mmol/L (5-15); CALCIUM 8.3 mg/dL (8.5-10.1); CHLORIDE 105 mmol/L (98-107); CREATININE 1.16 mg/dL (0.7-1.3)
[2019-01-21 18:30] LABS: ALKALINE PHOSPHATASE 293 U/L (45-117); BILIRUBIN,TOTAL 0.1 mg/dL (0.2-1.0); TOTAL PROTEIN 7.8 g/dL (6.4-8.2)
[2019-01-21 18:42] LABS: CULTURE INDICATED? NO; TROPONIN I < 0.015 ng/mL (0.000-0.045)
[2019-01-21 18:51] VITALS: BP 125/71
--- NOTE | 2019-01-21 18:52 | NUR ---
REPORT RECEIVED FROM ROBERTO LEYVA.
--- NOTE | 2019-01-21 19:48 | NUR ---
PT GIVEN DC INSTRUCTIONS. PT'S AOX4. RESPS EVEN AND UNLABORED. PT AMB TO DC WITH STEADY GAIT. NO ACUTE DISTRESS AT DC.
== END 2019-01-21 19:49 | disposition home or self-care (01) ==
LOC: ED 17:29
DX: R07.89 Other chest pain (principal); I50.1 Left ventricular failure, unspecified; I25.2 Old myocardial infarction; E78.00 Pure hypercholesterolemia, unspecified; E78.5 Hyperlipidemia, unspecified; E11.9 Type 2 diabetes mellitus without complications; I10 Essential (primary) hypertension; Z87.891 Personal history of nicotine dependence
CPT/HCPCS: 36415; 74022; 80053; 81003; 83690; 84484; 85025; 93005; 99284

== ENCOUNTER → 2020-05-17 | Outpatient (CLI) | payer MEDICARE ==
[~2020-05-17] MED LIST changes: +ASPI81TA45 PO; +ATORVASTATIN PO; +CARV6.2512 PO; +FINA5TAB4 PO; +GLIM2TAB7 PO; -GLIM4TAB2 PO; +GLIM4TAB8 PO; +ISOS30TA8 PO; +LISI1TAB39 PO; -LISI1TAB5 PO; +OXYC5TAB3 PO
== END | disposition home or self-care (01) ==
LOC: CFH 07:48
PROVIDERS: ATTEND Nurse Practitioner
DX: J43.2 Centrilobular emphysema (principal); M43.8X4 Other specified deforming dorsopathies, thoracic region; R91.1 Solitary pulmonary nodule
CPT/HCPCS: 71250